=== PATIENT | female | born 1945 | race Hispanic/Latino ===

== ENCOUNTER 2017-01-30 06:51 | Outpatient (CLI) | payer MEDICARE, OTHER | END 2017-01-30 06:52 | disposition home or self-care (01) | LOC: BICCT 06:51 | PROVIDERS: ATTEND Internal Medicine | DX: R91.1 Solitary pulmonary nodule (principal); R91.8 Other nonspecific abnormal finding of lung field; I77.810 Thoracic aortic ectasia; I25.10 Atherosclerotic heart disease of native coronary artery without angina pectoris | CPT/HCPCS: 71250 ==

== ENCOUNTER 2017-02-27 15:46 | Outpatient (CLI) | payer MEDICARE, MEDICAID | END 2017-02-27 15:47 | disposition home or self-care (01) | LOC: BICBD 15:46 | PROVIDERS: ATTEND Nurse Practitioner Family | DX: Z13.820 Encounter for screening for osteoporosis (principal); M85.88 Other specified disorders of bone density and structure, other site | CPT/HCPCS: 77080 ==

== ENCOUNTER 2017-03-10 15:03 | Outpatient (CLI) | payer MEDICARE, MEDICAID | END 2017-03-10 15:04 | disposition home or self-care (01) | LOC: BICMAMMO 15:03 | PROVIDERS: ATTEND Nurse Practitioner Family | DX: Z12.31 Encounter for screening mammogram for malignant neoplasm of breast (principal) | CPT/HCPCS: 77063; 77067 ==

== ENCOUNTER 2017-11-30 14:55 | Outpatient (CLI) | payer MEDICARE, MEDICAID | END 2017-11-30 14:56 | disposition home or self-care (01) | LOC: CTENTCT 14:55 | PROVIDERS: ATTEND Otolaryngology Plastic Surgery within the Head & Neck | DX: J32.9 Chronic sinusitis, unspecified (principal) | CPT/HCPCS: 70486 ==

== ENCOUNTER 2018-04-06 14:38 | Outpatient (CLI) | payer MEDICARE, MEDICAID | END 2018-04-06 14:39 | disposition home or self-care (01) | LOC: BICMAMMO 14:38 | PROVIDERS: ATTEND Nurse Practitioner Family | DX: Z12.31 Encounter for screening mammogram for malignant neoplasm of breast (principal); R92.1 Mammographic calcification found on diagnostic imaging of breast; N63.10 Unspecified lump in the right breast, unspecified quadrant; N63.20 Unspecified lump in the left breast, unspecified quadrant | CPT/HCPCS: 77063; 77067 ==

== ENCOUNTER 2018-07-19 14:07 | Outpatient (CLI) | payer MEDICARE, MEDICAID ==
--- NOTE | 2018-07-19 15:16 | ULT ---
FOCUSED ULTRASOUND OF THE RIGHT BREAST: DATE: 07/19/2018. COMPARISON: None. HISTORY: Palpable abnormality within the right breast. FINDINGS: Focused ultrasound at the 12 o'clock position in the area of palpable concern demonstrates numerous p rominent simple cysts, measuring up to 2.8 cm. These findings are consistent with the mammographic a ppearance. IMPRESSION: BI-RADS 2 - benign findings. Recommend annual screening mammography. POS: OFF
--- NOTE | 2018-07-19 15:17 | ULT ---
FOCUSED ULTRASOUND LEFT BREAST: Date: 07/19/18 COMPARISON: None. HISTORY: Palpable masses in the 12 o'clock position of the left breast. FINDINGS: Focused ultrasound of the area of palpable concern demonstrates numerous simple cysts, including cyst s measuring up to 5.0 cm. This is consistent with the mammographic appearance. No solid mass or abnor mal shadowing. IMPRESSION: BIRADS Category 2 - Benign findings. Recommend annual screening mammography. POS: OFF
--- NOTE | 2018-07-19 15:19 | MMO ---
Bilateral MAMMO Bilat Diag [facility]. CLINICAL HISTORY: Patient is 72 years old and is seen for diagnostic exam and palpable abnormality in both breasts. The patient has no family history of breast cancer. The patient has no personal history of cancer. VIEWS: The views performed were: bilateral craniocaudal with tomosynthesis; bilateral mediolateral oblique with tomosynthesis; and bilateral mediolateral. FILMS COMPARED: The present examination has been compared to prior imaging studies performed at [facility] on 03/10/2017, 04/06/2018 and 07/19/2018. MAMMOGRAM FINDINGS: There are scattered fibroglandular densities. There are stable masses seen in both breasts. This includes in the area of palpable concern bilaterally. Ultrasound confirms numerous simple benign cysts. There are no suspicious masses, suspicious calcifications, or new areas of architectural distortion. IMPRESSION: THERE IS NO MAMMOGRAPHIC EVIDENCE OF MALIGNANCY. A ROUTINE FOLLOW-UP MAMMOGRAM IN 1 YEAR IS RECOMMENDED. 3BTHE RESULTS OF THIS EXAM WERE SENT TO THE PATIENT.0B ACR BI-RADS Category 2 - Benign finding MAMMOGRAPHY NOTE: 1. A negative mammogram report should not delay a biopsy if a dominant of clinically suspicious mass is present. 2. Approximately 10% to 15% of breast cancers are not detected by mammography. 3. Adenosis and dense breasts may obscure an underlying neoplasm.
== END 2018-07-19 14:08 | disposition home or self-care (01) ==
LOC: BICMAMMO 14:07
PROVIDERS: ATTEND Nurse Practitioner Family
DX: N63.10 Unspecified lump in the right breast, unspecified quadrant (principal); N63.20 Unspecified lump in the left breast, unspecified quadrant
CPT/HCPCS: 76642 ×2; 77066; G0279

== ENCOUNTER 2019-05-23 10:09 | Outpatient (CLI) | payer MEDICARE, MEDICAID ==
--- NOTE | 2019-05-23 11:11 | MMO ---
Bilateral MAMMO Bilat Diag [facility]. CLINICAL HISTORY: Patient is 73 years old and is seen for diagnostic exam and palpable abnormality in the right breast. The patient has no family history of breast cancer. The patient has no personal history of cancer. VIEWS: The views performed were: bilateral craniocaudal with tomosynthesis; bilateral mediolateral oblique with tomosynthesis; and bilateral mediolateral with tomosynthesis. FILMS COMPARED: The present examination has been compared to prior imaging studies performed at [facility] on 07/19/2018 and 05/23/2019. This study has been interpreted with the assistance of computer-aided detection. MAMMOGRAM FINDINGS: The breasts are heterogeneously dense, which could obscure a lesion on mammography. Bilateral breast masses appear stable. Ultrasound right breast confirms numerous cysts. There are no suspicious masses, suspicious calcifications, or new areas of architectural distortion. IMPRESSION: THERE IS NO MAMMOGRAPHIC EVIDENCE OF MALIGNANCY. A ROUTINE FOLLOW-UP MAMMOGRAM IN 1 YEAR IS RECOMMENDED. THE RESULTS OF THIS EXAM WERE SENT TO THE PATIENT. ACR BI-RADS Category 2 - Benign finding MAMMOGRAPHY NOTE: 1. A negative mammogram report should not delay a biopsy if a dominant of clinically suspicious mass is present. 2. Approximately 10% to 15% of breast cancers are not detected by mammography. 3. Adenosis and dense breasts may obscure an underlying neoplasm. Reported by: ALONSO MODI MD Electonically Signed: [id number]
--- NOTE | 2019-05-23 11:43 | ULT ---
ULTRASOUND RIGHT BREAST: INDICATION: Assess palpable abnormality in the right breast. COMPARISON: Correlation is made to mammogram. Mammogram shows stable bilateral breast masses. FINDINGS: Ultrasound reveals numerous cysts in the right breast. The palpable abnormality corresponds to a cys t at 2 o'clock which measures approximately 2.5 to 3.0 cm. Multiple other cysts are seen in the right breast, all of which have benign appearance. No suspiciou s solid mass identified. IMPRESSION: 1. Numerous cysts in the right breast. 2. BIRADS 2: Benign findings.
== END 2019-05-23 10:10 | disposition home or self-care (01) ==
LOC: BICMAMMO 10:09
PROVIDERS: ATTEND Nurse Practitioner Family
DX: N63.10 Unspecified lump in the right breast, unspecified quadrant (principal); N60.01 Solitary cyst of right breast
CPT/HCPCS: 76642; 77066; G0279

== ENCOUNTER 2020-03-01 15:49 | Outpatient (CLI) | payer MEDICARE, MEDICAID | END 2020-03-01 15:50 | disposition home or self-care (01) | LOC: CTENTCT 15:49 | PROVIDERS: ATTEND Otolaryngology Plastic Surgery within the Head & Neck | DX: J32.9 Chronic sinusitis, unspecified (principal) | CPT/HCPCS: 70486 ==

== ENCOUNTER 2020-06-12 13:42 | Outpatient (CLI) | payer MEDICARE, MEDICAID | END 2020-06-12 13:43 | disposition home or self-care (01) | LOC: BICMAMMO 13:42 | PROVIDERS: ATTEND Nurse Practitioner Family | DX: Z12.31 Encounter for screening mammogram for malignant neoplasm of breast (principal) | CPT/HCPCS: 77063; 77067 ==

== ENCOUNTER 2020-12-27 09:43 | Outpatient (CLI) | payer MEDICARE, MEDICAID | END 2020-12-27 09:44 | disposition home or self-care (01) | LOC: BICULT 09:43 | PROVIDERS: ATTEND Nurse Practitioner Family | DX: N81.4 Uterovaginal prolapse, unspecified (principal) | CPT/HCPCS: 76856 ==

== ENCOUNTER 2021-08-12 11:25 | Outpatient (CLI) | payer MEDICARE, MEDICAID | END 2021-08-12 11:26 | disposition home or self-care (01) | LOC: BICMAMMO 11:25 | PROVIDERS: ATTEND Nurse Practitioner Family | DX: M81.0 Age-related osteoporosis without current pathological fracture (principal) | CPT/HCPCS: 77080 ==